=== PATIENT | female | born 1945 | race Caucasian/White ===

== ENCOUNTER → 2020-03-01 11:22 | Outpatient (CLI) | payer MEDICARE, OTHER, SELFPAY ==
--- NOTE | ~2020-03-01 | DEXA_ITS ---
Bone Density Report Name: Chio Andersen Age: 74 Sex: Female Ethnicity: White Date of : 1945 Indication: postmenopausal; screening for osteoporosis; hysterectomy; Referring Provider: MILO, JOSE King Study: Bone densitometry was performed. Exam Date: March 01, 2020 Accession number: [id number] Bone Density: Region BMD T-score Z-score Classification AP Spine (L1-L4) 0.945 -0.9 1.6 Normal Femoral Neck (Left) 0.661 -1.7 0.5 Osteopenia Total Hip (Left) 0.785 -1.3 0.6 Osteopenia Femoral Neck (Right) 0.653 -1.8 0.4 Osteopenia Total Hip (Right) 0.746 -1.6 0.3 Osteopenia Total Hip Mean 0.766 -1.5 0.5 Osteopenia World Health Organization criteria for BMD impression classify patients as: Normal (T-score at or above -1.0), Osteopenia (T-score between -1.0 and -2.5), or Osteoporosis (T-score at or below -2.5). 10-year Fracture Risk(1): Major Osteoporotic Fracture 13% Hip Fracture 3.0% Reported Risk Factors: [place] (), Neck BMD=0.653, BMI=29.1 (1) FRAX(R) Version 3.08. Fracture probability calculated for an untreated patient. Fracture probability may be lower if the patient has received treatment. Clinical Information Provided by Patient: Has used the following medications: Vitamin D, Calcium, MTV Has the following medical conditions: Hysterectomy Patient maximum height was 65 Menopause Age: 47 Drinks caffeinated beverages Onset of menses at age 10 Number of children 1 Impression: The patient has low bone mass, based on the Right Femoral Neck T-score. The patient has an estimated ten-year risk of hip fracture of 3% and an estimated ten-year risk of major fracture of 13%, based on the WHO FRAX algorithm. Discussion: BONE DENSITY IS LOW AT ONE OR MORE SKELETAL SITES. THE PATIENT'S BMD AND CLINICAL RISK FACTORS CONTRIBUTE TO THIS PATIENT'S INCREASED RISK OF FRACTURE. This patient's lowest T-score is low at one or more skeletal sites. It meets the World Health Organization's (WHO) criteria for ?low bone mass? (T-score between -1.0 and -2.5). The patient's 10-year risk of hip fracture as calculated by FRAX exceeds the threshold where pharmacological therapy is recommended by the National Osteoporosis Foundation (NOF). However, all treatment decisions require clinical judgment and consideration of individual patient factors, including patient preferences, comorbidities, previous drug use, risk factors not captured in the FRAX model (e.g., frailty, falls, vitamin D deficiency, increased bone turnover, interval significant decline in bone density) and possible under or overestimation of fracture risk by FRAX. The patient should follow a healthful lifestyle (good nutrition with adequate calcium and vitamin D, and appropriate weight-bearing exercise). Follow-Up: Consider a rep
== END ==
PROVIDERS: PCP Internal Medicine; Visit Provider Internal Medicine
DX: Z78.0 Asymptomatic menopausal state (principal); M85.852 Other specified disorders of bone density and structure, left thigh; M85.851 Other specified disorders of bone density and structure, right thigh
CPT/HCPCS: 77080

== ENCOUNTER → 2021-11-24 10:59 | Outpatient (CLI) | payer MEDICARE, OTHER, SELFPAY ==
--- NOTE | ~2021-11-24 | US_ITS ---
EXAMINATION: US soft tissue head and neck DATE: 11/24/2021 11:17 INDICATION: Lateral right neck mass TECHNIQUE: Multiple grayscale and Doppler ultrasound images of the region of concern at the lateral r ight neck were obtained. COMPARISON: None FINDINGS/IMPRESSION: The palpable abnormality of concern appears to correspond to the right sternoclavicular joint. No mague dent joint effusion. No other abnormal masses or fluid collections identified. Reviewed, dictated and finalized at location A.
== END ==
PROVIDERS: PCP Internal Medicine; Visit Provider Registered Nurse
DX: R22.1 Localized swelling, mass and lump, neck (principal)
CPT/HCPCS: 76536

== ENCOUNTER → 2023-05-08 11:06 | Outpatient (CLI) | payer MEDICARE, OTHER, SELFPAY ==
--- NOTE | ~2023-05-08 | DEXA_ITS ---
Bone Density Report Name: KANDI KRUSE Age: 78 Sex: Female Ethnicity: White Date of : 1945 Indication: osteopenia; height loss; cancer; hysterectomy; postmenopausal Referring Provider: MILO, JOSE King Study: Bone densitometry was performed. Exam Date: May 08, 2023 Accession number: [id number] Bone Density: Region BMD T-score Z-score Classification AP Spine (L1-L4) 0.996 -0.5 2.2 Normal Femoral Neck (Left) 0.732 -1.1 1.2 Osteopenia Total Hip (Left) 0.804 -1.1 0.9 Osteopenia Femoral Neck (Right) 0.653 -1.8 0.5 Osteopenia Total Hip (Right) 0.726 -1.8 0.3 Osteopenia Total Hip Mean 0.765 -1.5 0.6 Osteopenia World Health Organization criteria for BMD impression classify patients as: Normal (T-score at or above -1.0), Osteopenia (T-score between -1.0 and -2.5), or Osteoporosis (T-score at or below -2.5). 10-year Fracture Risk(1): Major Osteoporotic Fracture 14% Hip Fracture 3.7% Reported Risk Factors: US (), Neck BMD=0.653, BMI=28.0 (1) FRAX(R) Version 3.08. Fracture probability calculated for an untreated patient. Fracture probability may be lower if the patient has received treatment. Previous Exams: Region Exam Age BMD T-score BMD Change BMD Change Date g/cm2 vs Baseline vs Previous AP Spine(L1-L4) 05/08/2023 78 0.996 -0.5 0.051* 0.051* 03/01/2020 74 0.945 -0.9 Total Hip(Left) 05/08/2023 78 0.804 -1.1 0.018 0.018 03/01/2020 74 0.785 -1.3 Total Hip(Right) 05/08/2023 78 0.726 -1.8 -0.020 -0.020 03/01/2020 74 0.746 -1.6 *Denotes significance at 95% confidence level, LSC for AP Spine = 0.022 g/cm2, LSC for Total Hip = 0.027 g/cm2 Clinical Information Provided by Patient: Has used the following medications: Vitamin D, Calcium, MTV Has the following medical conditions: Cancer, Hysterectomy, SKIN CANCER Patient maximum height was 65 Menopause Age: 47 Drinks caffeinated beverages Onset of menses at age 10 Number of children 1 Impression: The patient has low bone mass, based on the Right Total Hip T-score. The patient has an estimated ten-year risk of hip fracture of 3.7% and an estimated ten-year risk of major fracture of 14%, based on the WHO FRAX algorithm. No significant bone loss was observed. Discussion: BONE DENSITY IS LOW AT ONE OR MORE SKELETAL SITES. THE PATIENT'S BMD AND CLINICAL RISK FACTORS CONTRIBUTE TO THIS P
== END ==
PROVIDERS: PCP Internal Medicine; Visit Provider Internal Medicine
DX: M85.89 Other specified disorders of bone density and structure, multiple sites (principal); Z78.0 Asymptomatic menopausal state
CPT/HCPCS: 77080

== ENCOUNTER → 2023-05-08 11:11 | Outpatient (CLI) | payer MEDICARE, OTHER, SELFPAY ==
--- NOTE | ~2023-05-08 | CT_ITS ---
EXAMINATION: CT sinus wo con DATE: 05/08/2023 11:39 INDICATION: Acute recurrent maxillary sinusitis TECHNIQUE: Computed tomography (CT) of the paranasal sinuses was performed without contrast. Iterativ e reconstruction technique was employed. Exam dose: 275.58 mGy-cm total exam DLP. COMPARISON: None FINDINGS: There is slight rightward bowing of the nasal septum. The nasal turbinates are symmetric an d moderately prominent in size, with intralamellar cell of both middle nasal turbinates. The ostiomeatal units are patent. The paranasal sinuses and mastoid air cells are normally developed and aerated bilaterally. IMPRESSION: Patent ostiomeatal units, paranasal sinuses and mastoid air cells. Reviewed, dictated and finalized at Location A. Reviewed, dictated and finalized at location L. EMIC SERVICES COORDINATOR
== END ==
PROVIDERS: PCP Otolaryngology; Visit Provider Otolaryngology
DX: J01.01 Acute recurrent maxillary sinusitis (principal)
CPT/HCPCS: 70486

== ENCOUNTER 2023-10-21 10:58 | Emergency (ER) | payer MEDICARE, OTHER, SELFPAY ==
[2023-10-21 11:09] VITALS: BP 136/71; PULSE 66; RESP 14; TEMP 36.4; O2SAT 100
--- NOTE | 2023-10-21 11:24 | ED.SKABFB ---
HPI - Skin/Abscess/Foreign Bdy General Chief complaint: Allergic Reaction Stated complaint: Left Wrist Wasp Sting Time Seen by Provider: 10/21/23 10:59 Source: patient Mode of arrival: ambulatory Limitations: no limitations History of Present Illness HPI narrative: 78-year-old female presents to [facility] with complaints of wasp sting to her left wrist which occurred 2 days ago. Patient reports that she has been applying cool compress, taking Benadryl as well as applying triamcinolone ointment that she has at home. Patient denies shortness of breath, wheezing, trouble swallowing or difficulty breathing. Onset (ago): day(s) (2) Location: LUE Associated symptoms: denies other symptoms Treatments prior to arrival: OTC topical medication Related Data Home Medications Medication Instructions Recorded Confirmed aspirin 81 mg tablet,delayed 81 mg PO DAILY 06/12/23 release (Enteric Coated Aspirin) nebivolol 10 mg tablet (Bystolic) 10 mg PO DAILY 06/12/23 atorvastatin 20 mg tablet mg 10/21/23 estradiol 0.0375 mg/24 hr 10/21/23 semiweekly transdermal patch nebivolol 10 mg tablet (Bystolic) mg 10/21/23 triamterene 37.5 cap 10/21/23 mg-hydrochlorothiazide 25 mg capsule Allergies Allergy/AdvReac Type Severity Reaction Status Date / Time diphenhydramine Allergy Intermediate tachicardi Verified 06/12/23 13:03 [From Benadryl] Sulfa (Sulfonamide Allergy Intermediate Rash Verified 06/12/23 13:03 Antibiotics) isosorbide [From Imdur] Allergy Rash Verified 10/21/23 11:12 Review of Systems Constitutional: Constitutional: Denies chills, Denies fatigue, Denies fever(s) and Denies weakness ENT: Denies dizziness, Denies epistaxis and Denies nasal congestion Cardiovascular: Cardiovascular: Denies chest pain Respiratory: Respiratory: Denies cough, Denies dyspnea and Denies wheezing Gastrointestinal: Gastrointestinal: Denies diarrhea, Denies nausea and Denies vomiting Integumentary/Breasts: Skin/Breast: Denies pruritus, Reports erythema, Reports rash and Denies skin ulcer Comments: Wasp sting to left wrist 2 days ago Neurologic: Denies vertigo, Denies dizziness, Denies syncope and Denies headache(s) Allergic/Immunologic: Allergic/Immunologic: Denies lip swelling, Denies throat swelling, Denies tongue swelling and Denies wheezing PMFSH Social History Social History Smoking status: Never smoker Alcohol intake: never Substance use: never Substance use type: does not use Do You Feel Safe in your Home?: Yes Lack of Transportation: No Lack of Food: Never True Current Housing: I Have Housing Concerned About Future Housing: No Difficulty Paying Gas/Electric Bills: No Difficulty Paying for Meds: No Currently Unemployed: No Education: Bachelor's Degree Difficulty w/ Childcare or Family Care: No Comments At time of signature, I agree with nursing past medical, surgical, social and family history. There is no relevant family history pertinent to the presenting complaint. Exam Const: General: healthy appearing, no acute distress and alert Nutritional Appearance: well nourished Orientation/consciousness: patient oriented x3 Limitations: no limitations HENMT: Head: normal to inspection Throat: posterior oropharynx normal and uvula midline Eyes: Conjunctivae: conjunctivae normal Neck: Neck: normal visual inspection Resp: Effort & Inspection: normal respiratory effort and not labored Auscultation: clear to auscultation bilaterally, no crackles, no rales, no rhonchi and no wheezes Cardio: Rate: regular rate Rhythm: regular rhythm Heart sounds: no murmurs Skin: General skin exam: normal color Other: 1 cm area of erythema noted to left wrist representing wasp sting with surrounding swelling noted. There is no streaking erythema, bruising or bleeding noted. Neuro: General: patient oriented x3 Speech: normal
== END 2023-10-21 11:38 | disposition home or self-care (01) ==
PROVIDERS: Emergency Provider Nurse Practitioner Family; PCP Internal Medicine
DX: T63.461A Toxic effect of venom of wasps, accidental (unintentional), initial encounter (principal); Z79.82 Long term (current) use of aspirin
CPT/HCPCS: 99213; G0463

== ENCOUNTER 2024-10-03 10:37 | Emergency (ER) | payer MEDICARE, OTHER, SELFPAY ==
--- OUTSIDE RECORDS SUMMARY | 2024-10-03 10:40 | XMS_ITS | Encounter Summary ---
Author Organization [facility] Facility Care Team Providers Care Cage Fighter Name Role Phone Ten Overton MD Primary Care Provider [phone] Anum Yusuf MD Unavailable [phone] Jagjit Maxwell MD Unavailable [phone] Encounter Details Date Type Department Care Team (Latest Contact Info) Description 02/20/2017 Orders Only [facility]IN[facility] ProviderSachin MD [address] [place] [id number] Social History Tobacco Use Types Packs/Day Years Used Date Smoking Tobacco: Never Comments Unknown Sex and Gender Information Value Date Recorded Sex Assigned at Not on file 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 us Historical Provider Final Res ult * SCAN - LABS (02/20/2017 12:00 AM CDT) Narrative 02/20/2017 12:00 AM CDT Ordered by an unspecified provider. us Historical Provider Final Res ult documented in this encounter Visit Diagnoses Not on filedocumented in this encounter Additional Health Concerns Infection Onset Date Last Indicated Resolved Time C. difficile 02/08/2012 02/07/2012 documented as of this encounter Care Teams Cage Fighter Relationship Specialty Start Date End Date Ten Overton MD [address] [place] [address] PCP - General 08/26/18 Anum Yusuf MD [address] [place] [address] [address] Consulting Physician Cardiology 05/28/19 Jagjit Maxwell MD [address] [place] [address] Consulting Physician Internal Medicine 11/29/20 documented as of this encounter
--- OUTSIDE RECORDS SUMMARY | 2024-10-03 10:40 | XMS_ITS | Encounter Summary ---
Author Organization [facility] Facility Care Team Providers Care Appraisal Manager Name Role Phone Ten Overton MD Primary Care Provider [phone] Anum Yusuf MD Unavailable [phone] Jagjit Maxwell MD Unavailable [phone] Encounter Details Date Type Department Care Team (Latest Contact Info) Description 10/11/2015 Orders Only [facility]INCONV Provider, MD Sachin [address] [place], [place] [id number] Social History Tobacco Use Types Packs/Day Years Used Date Smoking Tobacco: Never Comments Unknown Sex and Gender Information Value Date Recorded Sex Assigned at Not on file 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 Historical Provider [facility] Final Result * CARDIOLOGY REPORT (10/11/2015 12:00 AM CDT) Anatomical Region Laterality Modality Other Narrative 10/11/2015 12:00 AM CDT Ordered by an unspecified provider. us Historical Provider [facility] EILAS Final Result documented in this encounter Visit Diagnoses Not on filedocumented in this encounter Additional Health Concerns Infection Onset Date Last Indicated Resolved Time C. difficile 02/08/2012 02/07/2012 documented as of this encounter Care Teams Appraisal Manager Relationship Specialty Start Date End Date Ten Overton MD [address] [place] [address] PCP - General 08/26/18 Anum Yusuf MD [address] [place] [address] [address] Consulting Physician Cardiology 05/28/19 Jagjit Maxwell MD [address] [place] [address] Consulting Physician Internal Medicine 11/29/20 documented as of this encounter
--- OUTSIDE RECORDS SUMMARY | 2024-10-03 10:40 | XMS_ITS | Clinical Summary ---
Author Organization [facility] Address [address] [place] [address] Care Team Providers Care Commissioned Police Officer Name Role Phone Ten Overton MD Primary Care Provider [phone] Source Comments [facility],non-owned Affiliates and Associated Physician Practices is amultiple site organization consisting of ambulatory clinics and hospital sitesin [place], [place], [place] and [place]. This disclosure is being madepursuant to the Care Everywhere program and may not contain all information available regarding this patient. Last updated 18.[employer] Allergies Active Allergy Reactions Criticality Noted Date Comments Sulfa Drugs Skin Reactions,Rash Medium 06/27/2017 Medications * Be aware that medications may not be up to date on this document. Alwaysverify current medications with the patient. Ubiquinol 100 MG Take 1 tablet by mouth DAILY. 8 Active fexofenadine (NAT) 60 MG tablet Take 180 mg by mouth. 8 Active metroNIDAZOLE (METROGEL) 1 % gel Apply to affected area. 8 Active triamterene-hydr oCHLOROthiazide (DYAZIDE) 37.5-25 MG capsule Take 1 capsule by mouth. 8 Active Krill Oil 1000 MG Take 1 tablet by mouth DAILY. 8 Active amoxicillin (AMOXIL) 500 MG tablet Take 1 tablet by mouth. 8 Active Probiotic Product (ACIDOPHILUS/GOA T MILK) CAPS Take 1 tablet by mouth DAILY. 8 Active acetaminophen CR (TYLENOL ARTHRITIS PAIN) 650 MG tablet Take 1 tablet by mouth. 8 Active isosorbide mononitrate CR 24hr (IMDUR) 30 MG tablet Take 15 mg by mouth. 8 Active nebivolol (BYSTOLIC) 10 MG tablet Take by mouth DAILY. 8 Active Magnesium Sulfate 70 MG Take 1 tablet by mouth DAILY. 8 Active Vitamin D3, cholecalciferol, 2000 UNITS tablet Take by mouth DAILY. 8 Active aspirin (ASPIRIN) 81 MG tablet Take 81 mg by mouth DAILY. 8 Active Sulfacetamide Sodium (SEBIZON) 10 % by Apply externally route. 8 Active atorvastatin (LIPITOR) 20 MG tablet Take 20 mg by mouth DAILY. 8 Active Family History Medical History Relation Name Comments Diabetes - Gestational Father Diabetes - Gestational Sister Relation Name Status Comments Father Sister Social History Tobacco Use Types Packs/Day Years Used Date Smoking Tobacco: Never Smokeless Tobacco: Never Alcohol Use Standard Drinks/Week Comments No 0 (1 standard drink = 0.6 oz pur e alcohol) Comments Unknown Sex and Gender Information Value Date Recorded Sex Assigned at Not on file Legal Sex Female 5:37 PM SWIMMING COACH Gender Identity Not on file Sexual Orientation Not on file Last Filed Vital Signs Vital Sign Reading Time Taken Comments Blood Pressure 127/76 07/18/2017 10:40 AM CDT Pulse 57 07/18/2017 10:40 AM CDT Temperature - - Respiratory Rate - - Oxygen Saturation 96% 07/18/2017 10:40 AM CDT Inhaled Oxygen Concentration - - Weight 79.8 kg (176 lb) 07/18/2017 8:15 AM CDT Height 165.1 cm (5' 5) 07/18/2017 8:15 AM CDT Body Mass Index 29.29 07/18/2017 8:15 AM CDT Plan of Treatment Health Maintenance Due Date Last Done Comments BONE DENSITY TESTING 1945 MEDICARE AWV 12 MONTHS 1945 DTAP/TDAP/TD VACCINES (1 - Tdap) 1962 PNEUMOCOCCAL VACCINE 50+ (1 of 1 - PCV) 1993 ZOSTER VACCINE (1 of 2) 1993 Respiratory Syncytial Virus (RSV) Vaccine Pt: or over 60 yrs (1 - 1-dose 75+ series) 2018 COVID-19 VACCINE ( - 2023-2 5 season) 2023 DEPRESSION SCREENING 04/23/2024 INFLUENZA VACCINE (Season Ended) 2024 HEPATITIS B VACCINE Aged Out No longe r eligible based on patient's age to complete this topic HIB VACCINE Aged Out No longer eligi ble based on patient's age to complete this topic HPV VACCINE Aged Out No longer eligi ble based on patient's age to complete this topic MENINGOCOCCAL (Group B) VACC INE SHARED DECISION-MAKING Aged Out No longer eligibl e based on patient's age to complete this topic MENINGOCOCCAL GROUPS A/C/Y/W VACCINE Aged Out No longer eligible b ased on patient's age to complete this topic Insurance MEDICARE MEDICARE [facility] Care Teams Commissioned Police Officer Relationship Specialty Start Date End Date Ten Overton MD PCP - General 06/12/17
--- OUTSIDE RECORDS SUMMARY | 2024-10-03 10:40 | XMS_ITS | Clinical Summary ---
Author Organization [facility] Office Center Address [address] [place] [address] Care Team Providers Care Remedial Project Manager Name Role Phone Ten Overton MD Primary Care Provider [phone] Anum Yusuf MD Unavailable [phone] Jagjit Maxwell MD Unavailable Allergies Active Allergy Reactions Criticality Noted Date Comments Diphenhydramine Palpitations Low 12/18/2018 Isosorbide Dinitrate Other (See comments) Low 02/20 Sulfa (Sulfonamide Antibiotics) Unknown,Rash Medium Venom-Honey Bee Anaphylaxis High 09/14/2020 Medications acetaminophen 325 mg capsule 1 capsule (325 mg total) every 6 (six) hours Active cholecalciferol (VITAMIN D-3) 1,000 unit capsule 2 capsules (2,000 Units total) daily Active triamterene-hyd roCHLOROthiazid e (MAXZIDE,DYAZID E) 37.5-25 mg per tablet/capsule Take 1 tablet/capsule by mouth daily as needed Active calcium carbonate-vitam in D3 1,250mg (500mg elemental) - 5 mcg (200 units) per tablet daily Active multivitamin tablet daily Active COQ10, LIPOSOMAL UBIQUINOL, ORAL 100 mg daily A ctive aspirin 81 mg enteric coated tablet 1 tablet (81 mg total) daily Active estradioL (CLIMARA) 0.0375 mg/[address] 1 patch on the skin every 2 (two) weeks Active triamcinolone (KENALOG) 0.1 % cream Apply topically 2 (two) times a day 1 Active naproxen (ALEVE) 220 mg tablet Take 1 tablet (220 mg total) by mouth as needed Active hydrocortisone 0.5 % cream Apply topically 2 (two) times a day as needed Active doxycycline (VIBRAMYCIN) 100 mg capsule Take 1 tablet/capsule (100 mg total) by mouth daily 2 Active MAGNESIUM CHLORIDE ORAL Take 4 tablets by mouth daily Active fexofenadine (NAT) 180 mg tablet Take 1 tablet (180 mg total) by mouth daily Active krill oil 500 mg capsule Take 2 capsules by mouth daily Active clobetasoL (TEMOVATE) 0.05 % gelIndications: Contact Dermatitis Apply 1 application topically 2 (two) times a day As needed Active grayson qat-[id number]-[id number]-Zn-c op-man-bor 250-40-125 mg-mg-unit tablet Take 500 mg by mouth 2 (two) times a day Active fluticasone propionate (FLONASE) 50 mcg/actuation nasal spray Administer 1 spray into each nostril daily Active Bacillus coagulans (PROBIOTIC, B. COAGULANS, ORAL) Take 3 tablets by mouth daily Active atorvastatin (LIPITOR) 40 mg tablet TAKE 1 TABLET(40 MG) BY MOUTH EVERY NIGHT 90 tablet 1 4 Active nebivoloL (BYSTOLIC) 10 mg tablet Take 1 tablet (10 mg total) by mouth daily 90 tablet 1 5 03/01/20 25 Active Active Problems Problem Noted Date Diagnosed Date Nonrheumatic aortic (valve) insufficiency 2022 COVID-19 04/01/2021 Palpitations 02/28/2021 Essential hypertension 05/29/2019 Assessment & Plan (07/13/2022 1:26 PM CDT): Patient has longstanding history of hypertension and tolerating medications well blood pressure under good control patient on Bystolic Plan to continue Bystolic and salt restricted diet Lipids abnormal 11/21/2018 Assessment & Plan (07/13/2022 1:27 PM CDT): Abnormal lipids patient on Lipitor 20 mg tolerating well no side effects no muscle aches advised to continue Lipitor and low-cholesterol diet HLD (hyperlipidemia) 06/15/2016 CAD (coronary artery disease) 01/12/2016 SVT (supraventricular tachycardia) 01/12/2016 Assessment & Plan (07/13/2022 1:26 PM CDT): Known case of SVT on beta taylor tolerating medications well no side effects and not having any palpitation plan to continue same medication MVP (mitral valve prolapse) 01/12/2016 Vitamin D deficiency Encounters Date Type Department Care Team Description 09/22/2024 1:00 PM CDT Office Visit [facility] Cardiology [address] [place] [address] Lev Hammond MD Coronary artery disease involving upper sioux coronary artery of upper sioux heart without angina pectoris (Primary Dx); Mixed hyperlipidemia; Essential hypertension; Nonrheumatic aortic (valve) insufficiency 09/22/2024 Results Follow-Up [facility] Cardiology [address] [place] [address] Lev Hammond MD Comprehensive metabolic panel, Lipid panel, eGFR 09/19/2024 1:50 PM CDT Lab [facility] [address] [place] [id number] from Last 3 Months Surgical History Surgery Date Site/Laterality Comments TONSILLECTOMY AND ADENOIDECTOMY HYSTERECTOMY BREAST BIOPSY Right Benign BREAST BIOPSY Right Benign Medical History Medical History Date Comments CAD (coronary artery disease) SVT (supraventricular tachycardia) MVP (mitral valve prolapse) HLD (hyperlipidemia) Vitamin D deficiency Back pain DJD (degenerative joint disease) DJD (degenerative joint disease) Family History Medical History Relation Name Comments Breast cancer Mother's Sister 1 Breast cancer Mother's Sister 2 Breast cancer Mother's Sister 3 Breast cancer Mother's Sister 4 Breast cancer Mother's Sister 5 Relation Name Status Comments Father Mother Mother's Sister 1 Mother's Sister 2 Mother's Sister 3 Mother's Sister 4 Mother's Sister 5 Social History Tobacco Use Types Packs/Day Years Used Date Smoking Tobacco: Never Smokeless Tobacco: Never Alcohol Use Standard Drinks/Week Comments Never 0 (1 standard drink = 0.6 oz pur e alcohol) AUDIT-C Answer Date Recorded Q1: How often do you have a drink containing alc ohol? Never 11/27/2019 Average Number of Drinks Not on file 020 Frequency of Binge Drinking Not on file 09/2019 Comments No Sex and Gender Information Value Date Recorded Sex Assigned at Not on file Legal Sex Female 10:02 PM MAINTENANCE DEPARTMENT MANAGER Gender Identity Female 10/05/2023 10:08 AM CDT Sexual Orientation Straight 10/05/2023 10 :09 AM CDT Obstetrics History Para Term AB IAB SAB Ectopic Multiple Livin g Live Births 1 1 1 Date Outcome GA Total Labor Labor/2nd/3rd Weight Sex Type Anes PTL Abeba A1 A5 Name Clin Term Last Filed Vital Signs Vital Sign Reading Time Taken Comments Blood Pressure 110/60 09/22/2024 12:56 PM CDT Pulse 64 09/22/2024 12:56 PM CDT Temperature 36.2 C (97.1 F) 09/06/2021 2:55 PM CDT Respiratory Rate 18 04/02/2021 10:0 2 AM MAINTENANCE DEPARTMENT MANAGER Oxygen Saturation 96% 09/22/2024 12: 56 PM CDT Inhaled Oxygen Concentration - - Weight 67.9 kg (149 lb 11.2 oz) 025 12:56 PM CDT Height 165.1 cm (5' 5) 09/22/2024 12:5 6 PM CDT Body Mass Index 24.91 09/22/2024 12:56 PM CDT Plan of Treatment Health Maintenance Due Date Last Done Comments Depression Screening 1945 Hepatitis B Screening 1961 Well Visit 65+ 2008 Fall Risk Assessment 04/02/2022 04/02/2021 DTaP/Tdap/Td Vaccine (2 - Td or Tdap) 11/14/2023 11/13/2013 Covid-19 Vaccine (2023-2 5 season) 2023 06/17/2020, 05/27/2020, 06/17/2011 Osteoporosis Screening-Bone Density Scan 05/08/2025 05/08/2023 Zoster Vaccine Completed 04/18/2018, 02/12/2018 Pneumococcal vaccine 65+ Completed 02/20/2019, 11/22 Influenza Vaccine Completed 02/11/2024, , 01/25/2019, Additional history exists Procedures Procedure Name Priority Date/Time Associated Diagnosis Comments EGFR Routine 09/19/2024 1:57 PM CDT LIPID PANEL Routine 09/19/2024 1:57 PM CDT COMPREHENSIVE METABOLIC PANEL Routine 09/19/2024 1:57 PM CDT from Last 3 Months Results * eGFR (09/19/2024 1:57 PM CDT) eGFR 90 >=60 mL/min/1. 73 m2 Comment: Interpretive Data Reference Interval Normal >/= 90 mL/min/1.73m2 Mildly decreased* 60 - 89 mL/min/1.73m2 Mildly to moderately decreased 45 - 59 mL/min/1.73m2 Moderately to severely decreased 30 - 44 mL/min/1.73m2 Severely decreased 15 - 29 mL/min/1.73m2 Kidney Failure < 15 mL/min/1.73m2 *Relative to young adult level Estimated glomerular filtration rate is determined by the 2020 CKD-EPI equation recommended by the National Kidney Foundation (A Unifying Approach to GFR Estimation: Recommendations of the NKF-ASK Task Force on Reassessing the Inclusion of Race in Diagnosing Kidney Disease, JASN 2020). The CKD-EPI equation should not be used for patients with unstable renal function and has not been validated in children and those over 70. Current interpretive data was last reviewed 2021. Testing performed by: [facility], [address] [place] [address]., [address] Blood 09/19/2024 1:57 PM CDT 09/19/2024 2:13 PM CDT us Lev Hammond MD LAB BLOOD ORDERABLES Final Result CARLIE [address] Department [place] [address] * Lipid panel (09/19/2024 1:57 PM CDT) Cholesterol 150 30 - 199 mg/dL Comment: Interpretive Data Ages < or = 19 years Acceptable: <170 mg/dL Borderline high: 170-199 mg/dL High: >or= 200 mg/dL Ages > or = 20 years Desirable: <200 mg/dL Borderline high: 200-239 mg/dL High: >or= 240 mg/dL Literature References: 1. Expert Panel on Integrated Guidelines for Cardiovascular Health and Risk Reduction in Children and Adolescents. Pediatrics 2011;128:S213 2. NCEP Expert Panel. Circulation 2004;110:227 Current Interpretive Data was last revised on 2017. Testing performed by: [address] [address] Triglycerides 75 <=149 mg/dL CARLIE Comment: Interpretive Data Ages < or = 9 years Acceptable: <75 mg/dL Borderline high: 75-99 mg/dL High: >or= 100 mg/dL Ages 10 to 20 years Acceptable: <90 mg/dL Borderline high: 90-129 mg/dL High: >or= 130 mg/dL Ages > or = 20 years Desirable: <150 mg/dL Borderline high: 150-199 mg/dL High: 200-499 mg/dL Very high: >or= 499 mg/dL Literature References: 1. Expert Panel on Integrated Guidelines for Cardiovascular Health and Risk Reduction in Children and Adolescents. Pediatrics 2011;128:S213 2. NCEP Expert Panel. Circulation 2004;110:227 Current Interpretive Data was last revised on 2017. Testing performed by: [address] [address] HDL 63 >=40 mg/dL CARLIE Comment: Interpretive Data Ages < or = 19 years Acceptable: >45 mg/dL Borderline low: 40-45 mg/dL Low: <40 mg/dL Ages > or = 20 years Desirable: >or= 60 mg/dL Low: <40 mg/dL Literature References: 1. Expert Panel on Integrated Guidelines for Cardiovascular Health and Risk Reduction in Children and Adolescents. Pediatrics 2011;128:S213 2. NCEP Expert Panel. Circulation 2004;110:227 Current Interpretive Data was last revised on 2017. Testing performed by: [address] [address] LDL, calculated 72 <=129 mg/dL CARLIE Comment: Interpretive Data Ages < or = 19 years Acceptable: <110 mg/dL Borderline high: 110-129 mg/dL High: >or= 130 mg/dL Ages > or = 20 years Optimal: <100 mg/dL Near optimal: 100-129 mg/dL Borderline high: 130-159 mg/dL High: >160 mg/dL Calculated using the Roby LDL-C estimating equation. This equation was implemented on 2023. Prior to this date LDL-C was estimated using the Friedewald equation. Literature References: 1. Expert Panel on Integrated Guidelines for Cardiovascular Health and Risk Reduction in Children and Adolescents. Pediatrics 2011;128:S213 2. NCEP Expert Panel. Circulation 2004;110:227 3. Roby M et al. AISHWARYA Cardiol. 2020 August 21;5(5):540-548. doi: 10.1001/jamacardio.2020.0013 Current Interpretive Data was last revised on 2023. Testing performed by: [address] [address] Non-HDL Cholesterol 87 mg/dL CARLIE NEVES Comment: Interpretive Data Ages < or = 19 years Acceptable: <120 mg/dL Borderline high: 120-144 mg/dL High: >145 mg/dL Ages > or = 20 years When triglycerides are >200 mg/dL, Non-HDL cholesterol is a secondary target of therapy with treatment goals that are 30 mg/dL greater than the LDL cholesterol target. Literature References: 1. Expert Panel on Integrated Guidelines for Cardiovascular Health and Risk Reduction in Children and Adolescents. Pediatrics 2011;128:S213 2. NCEP Expert Panel. Circulation 2004;110:227 Current Interpretive Data was last revised on 2017. Testing performed by: [address] [address] Chol/HDL ratio 2 CARLIE NEVES Comment:Testing performed by : [address] [address] Blood 09/19/2024 1:57 PM CDT 09/19/2024 2:13 PM CDT us Lev Hammond MD LAB BLOOD ORDERABLES Final Result CARLIE NEVES [address] [facility] [place] [address] * Comprehensive metabolic panel (09/19/2024 1:57 PM CDT) [facility] Signature Sodium 136 135 - 145 mmol/L Comment:Testing performed by : [address], [place]., [address] Potassium, pl 4.8 3.3 - 4.9 mmol/L CARLIE Comment: Hemolyzed; Potassium value may be falsely elevated by as much as 1.0 mmol/L. Suggest redraw and reanalysis. Testing performed by: [address], [place]., [address] Chloride 100 97 - 110 mmol/L CARLIE Comment:Testing performed by : [address], [place]., [address] CO2 30 22 - 32 mmol/L CARLIE Comment:Testing performed by : [address] [address] Anion gap 6 2 - 15 mmol/L CARLIE Comment:Testing performed by : [address] [address] BUN 11 6 - 25 mg/dL CARLIE Comment:Testing performed by : [address] [address] Creatinine 0.60 0.60 - 1.10 mg/dL CARLIE Comment:Testing performed by : [address] [address] Glucose 92 70 - 199 mg/dL CARLIE Comment: Interpretive Data Fasting glucose >/= 126 mg/dl is diagnostic for diabetes. Fasting is defined as no caloric intake for at least 8 hours. Fasting glucose between 100 mg/dl to 125 mg/dl is diagnostic of prediabetes. In a patient with classic symptoms of hyperglycemia or hyperglycemic crisis, a random glucose >/= 200 mg/dl is diagnostic for diabetes. In the absence of unequivocal hyperglycemia, results should be confirmed by repeat testing. The classification and Diagnosis of Diabetes Diabetes Care 202; 46: S19-S40. Current interpretive data was last revised 2022. Testing performed by: [address] [address] Calcium 9.6 8.5 - 10.3 mg/dL CARLIE Comment:Testing performed by : [address] [address] Bilirubin, total 0.8 0.1 - 1.2 mg/dL CARLIE Comment:Testing performed by : [address], [place]., [address] Protein, pl 6.6 6.5 - 8.5 g/dL CARLIE Comment:Testing performed by : [address], [place]., [address] Albumin 4.1 3.5 - 5.0 g/dL CARLIE Comment:Testing performed by : [address], [address] Alk phos 71 40 - 130 Units/L CARLIE Comment:Testing performed by : [address] [address] ALT 18 7 - 45 Units/L CARLIE Comment:Testing performed by : [address] [address] AST 25 10 - 45 Units/L CARLIE Comment:Testing performed by : [address] [address] Blood 09/19/2024 1:57 PM CDT 09/19/2024 2:13 PM CDT us Lev Hammond MD LAB BLOOD ORDERABLES Final Result Performing Organization Address City/State/[facility] Co de Phone Number [facility] [address] Department [place] [address] from Last 3 Months Additional Health Concerns Infection Onset Date Last Indicated C. difficile 02/08/2012 02/07/2012 Insurance MEDICARE [employer] [facility] [facility] MEDICARE Care Teams Remedial Project Manager Relationship Specialty Start Date End Date Ten Overton MD [address] [place] [address] PCP - General 08/26/18 Anum Yusuf MD [address] [place] [address] [address] Consulting Physician Cardiology 05/28/19 Jagjit Maxwell MD [address] [place] [address] [address] Consulting Physician Internal Medicine 11/29/20
--- OUTSIDE RECORDS SUMMARY | 2024-10-03 10:40 | XMS_ITS | Encounter Summary ---
Author Organization [facility] Facility Care Team Providers Care Lathe Set Up Person Name Role Phone Ten Overton MD Primary Care Provider [phone] Anum Yusuf MD Unavailable [phone] Jagjit Maxwell MD Unavailable [phone] Encounter Details Date Type Department Care Team (Latest Contact Info) Description 02/09/2012 Orders Only [facility] CLINCON[facility] ProviderSachin MD [address] [place], [place] [id number] Social History Tobacco Use Types Packs/Day Years Used Date Smoking Tobacco: Never Assessed Comments Unknown Sex and Gender Information Value Date Recorded Sex Assigned at Not on file Legal Sex Female 10:02 PM AMR PHYSICIAN Gender Identity Female 10/05/2023 10:08 AM CDT Sexual Orientation Straight 10/05/2023 10 :09 AM CDT documented as of this encounter Plan of Treatment Not on file documented as of this encounter Procedures Procedure Name Priority Date/Time Associated Diagnosis Comments CARDIOLOGY REPORT 06/14/2016 12: 00 AM [facility] PHYSICIAN documented in this encounter Results * CARDIOLOGY REPORT (06/14/2016 12:00 AM [facility] PHYSICIAN) Anatomical Region Laterality Modality Other Narrative 06/14/2016 12:00 AM [facility] PHYSICIAN Ordered by an unspecified provider. us Historical Provider [facility]ЯН[facility] ELIAS Final Result documented in this encounter Visit Diagnoses Not on filedocumented in this encounter Additional Health Concerns Infection Onset Date Last Indicated Resolved Time C. difficile 02/08/2012 02/07/2012 documented as of this encounter Care Teams Lathe Set Up Person Relationship Specialty Start Date End Date Ten Overton MD [address] [place] [address] PCP - General 08/26/18 Anum Yusuf MD [address] [place] [address] [address] Consulting Physician Cardiology 05/28/19 Jagjit Maxwell MD [address] [place] [address] [address] Consulting Physician Internal Medicine 11/29/20 documented as of this encounter
--- OUTSIDE RECORDS SUMMARY | 2024-10-03 10:40 | XMS_ITS | Encounter Summary ---
Author Organization [facility] Address [address] [facility] [place] [address] Care Team Providers Care Patrol Police Lieutenant Name Role Phone Ten Overton MD Primary Care Provider [phone] Encounter Details Date Type Department Care Team (Late st Contact Info) Description 03/23/2020 Lab Requisition [facility] DermPath Lab [address] [place] [address] Colleen Horn MD [address] [facility] [address] [place] [address] Social History Tobacco Use Types Packs/Day Years Used Date Smoking Tobacco: Never Smokeless Tobacco: Never Alcohol Use Standard Drinks/Week Comments No 0 (1 standard drink = 0.6 oz pur e alcohol) Comments Unknown Sex and Gender Information Value Date Recorded Sex Assigned at Not on file Legal Sex Female 5:37 PM POWER SUPPLY ENGINEER Gender Identity Not on file Sexual Orientation Not on file documented as of this encounter Plan of Treatment Not on file documented as of this encounter Procedures Procedure Name Priority Date/Time Associated Diagnosis Comments DERMATOPATHOLOGY Routine 03/22/2020 12:0 0 AM POWER SUPPLY ENGINEER documented in this encounter Results * DERMATOPATHOLOGY (03/22/2020 12:00 AM POWER SUPPLY ENGINEER) Case Report Dermatopathology Report Case: [id number] Authorizing Provider: Colleen Horn MD Collected: 03/22/2020 12:00 AM Ordering Location: [facility] DermPath Lab Received: 03/23/2020 06:12 AM Pathologist: Chiquita Wilkins MD Specimen: Skin, anterior neck 0 4:57 PM POWER SUPPLY ENGINEER DERMATOPATHOLOGY LABORATORY Final Diagnosis Specimen A. 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 0 4:57 PM [facility] DERMATOPATHOLOGY LABORATORY Gross Description Specimen A: Received is one formalin filled container labeled with the patient's name and designated anterior neck. The specimen consists of a shave measuring [id number]. Jar 0. 0 4:57 PM [facility] DERMATOPATHOLOGY LABORATORY Microscopic Description Specimen A. SKIN, anterior neck: The epidermis is focally necrotic and covered with a scale-crust. There is fibrin at the base. There is underlying solar elastosis and vascular ectasia. Additional deeper sections were obtained and reviewed. 0 4:57 PM [facility] DERMATOPATHOLOGY LABORATORY Disclaimer An external and internal positive and negative controls are appropriate for the histochemical, immunohistochemical and immunofluorescence stain(s) in this case (if any), except where stated explicitly. The performance characteristics of the stain(s) cited in this report were developed and its performance characteristic determined by the Dermatopathology Laboratory at [facility], directed by Dr. Abraham Goldman. These tests need not be, and therefore are not, approved by the [place] Food and Drug Administration. The tests are used for clinical purposes. Billing Codes Specimen Charges Stain Charges 68934 1 0 4:57 PM [facility] DERMATOPATHOLOGY LABORATORY Embedded Images 0 4:57 PM [facility] DERMATOPATHOLOGY LABORATORY Pathology/Cytolog y TISSUE SPECIMEN FROM SKIN / Unknown 03/22/2020 03/23/2020 6:12 AM [facility] us Colleen Horn MD LAB - PATHOLOGY/CYTOLOGY ORD ERABLES Final Result DERMATOPATHOLOGY LABORATORY [facility] - Department of Dermatology [address] [phone] documented in this encounter Visit Diagnoses Not on filedocumented in this encounter Care Teams Patrol Police Lieutenant Relationship Specialty Start Date End Date Ten Overton MD PCP - General 06/12/17 documented as of this encounter
--- OUTSIDE RECORDS SUMMARY | 2024-10-03 10:40 | XMS_ITS | Encounter Summary ---
Author Organization [facility] Address [address] [place] [address] Care Team Providers Care Stoneworking Sander Name Role Phone Ten Overton MD Primary Care Provider [phone] Anum Yusuf MD Unavailable [phone] Jagjit Maxwell MD Unavailable [phone] Encounter Details Date Type Department Care Team (Late st Contact Info) Description 09/22/2024 Results Follow-Up 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 difficile 02/08/2012 02/07/2012 documented as of this encounter Care Teams Stoneworking Sander Relationship Specialty Start Date End Date Ten Overton MD [address] [place] [address] PCP - General 08/26/18 Anum Yusuf MD [address] [facility] [address] [address] [place] [address] [address] Consulting Physician Cardiology 05/28/19 Jagjit Maxwell MD [address] [place] [address] [address] Consulting Physician Internal Medicine 11/29/20 documented as of this encounter
--- OUTSIDE RECORDS SUMMARY | 2024-10-03 10:40 | XMS_ITS | Encounter Summary ---
Author Organization [facility] Facility Care Team Providers Care Medical Photographer Name Role Phone Ten Overton MD Primary Care Provider [phone] Anum Yusuf MD Unavailable [phone] Jagjit Maxwell MD Unavailable Encounter Details Date Type Department Care Team (Latest Contact Info) Description 05/30/2012 Orders Only [facility] CLINCONV ProviderSachin MD [address] [place], [place] [id number] Social History Tobacco Use Types Packs/Day Years Used Date Smoking Tobacco: Never Assessed Comments Unknown Sex and Gender Information Value Date Recorded Sex Assigned at Not on file Legal Sex Female 10:02 PM ICE HANDLER Gender Identity Female 10/05/2023 10:08 AM CDT Sexual Orientation Straight 10/05/2023 10 :09 AM CDT documented as of this encounter Plan of Treatment Not on file documented as of this encounter Procedures Procedure Name Priority Date/Time Associated Diagnosis Comments CARDIOLOGY REPORT 06/14/2016 12: 00 AM ICE HANDLER documented in this encounter Results * CARDIOLOGY REPORT (06/14/2016 12:00 AM ICE HANDLER) Anatomical Region Laterality Modality Other Narrative 06/14/2016 12:00 AM ICE HANDLER Ordered by an unspecified provider. us Historical Provider [facility] ТАТЬЯНА ELIAS Final Result documented in this encounter Visit Diagnoses Not on filedocumented in this encounter Additional Health Concerns Infection Onset Date Last Indicated Resolved Time C. difficile 02/08/2012 02/07/2012 documented as of this encounter Care Teams Medical Photographer Relationship Specialty Start Date End Date Ten Overton MD [address] [place] [address] PCP - General 08/26/18 Anum Yusuf MD [address] [place] [address] [address] Consulting Physician Cardiology 05/28/19 Jagjit Maxwell MD [address] [place] [address] [address] Consulting Physician Internal Medicine 11/29/20 documented as of this encounter
--- OUTSIDE RECORDS SUMMARY | 2024-10-03 10:40 | XMS_ITS | Encounter Summary ---
Author Organization [facility] Address [address] [place] [address] Care Team Providers Care Cage Operator Name Role Phone Ten Overton MD Primary Care Provider [phone] Encounter Details Date Type Department Care Team (Late st Contact Info) Description 02/01/2023 Lab Requisition [facility] - DermPath Lab [address] [facility] [place] [id number] Colleen Horn MD [address] [facility] [address] [place] [address] Social History Tobacco Use Types Packs/Day Years Used Date Smoking Tobacco: Never Smokeless Tobacco: Never Alcohol Use Standard Drinks/Week Comments No 0 (1 standard drink = 0.6 oz pur e alcohol) Comments Unknown Sex and Gender Information Value Date Recorded Sex Assigned at Not on file 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 Gender Identity Not on file Sexual Orientation Not on file documented as of this encounter Plan of Treatment Not on file documented as of this encounter Procedures Procedure Name Priority Date/Time Associated Diagnosis Comments DERMATOPATHOLOGY Routine 02/01/2023 1:15 PM CDT documented in this encounter Results * DERMATOPATHOLOGY (02/01/2023 1:15 PM CDT) Case Report Dermatopathology Report Case: [id number] Authorizing Provider: Colleen Horn MD Collected: 02/01/2023 01:15 PM Ordering Location: [facility] DermPath Lab Received: 02/02/2023 06:33 AM Pathologist: Krystin Lanier MD Specimen: Skin, nose tip 1:00 PM CDT DERMATOPATHOLOGY LABORATORY Final Diagnosis Specimen A. SKIN, nose tip: ACTINIC KERATOSIS (L57.0) 1:00 PM CDT DERMATOPATHOLOGY LABORATORY at 1300 CDT Clinical History R/O BCC, Non- healing 1:00 PM CDT DERMATOPATHOLOGY LABORATORY Gross Description Specimen A: Received is one formalin filled container labeled with the patient's name and designated nose tip. The specimen consists of a shave biopsy measuring 4x4x1 mm. Jar 0. 1:00 PM CDT DERMATOPATHOLOGY LABORATORY Microscopic Description Specimen A. SKIN, nose tip: There is focal parakeratosis. The lower half of the epidermis shows disorderly maturation of keratinocytes with nuclear pleomorphism. 1:00 PM CDT DERMATOPATHOLOGY LABORATORY Disclaimer An external and internal positive and negative controls are appropriate for the histochemical, immunohistochemical and immunofluorescence stain(s) in this case (if any), except where stated explicitly. The performance characteristics of the stain(s) cited in this report were developed and its performance characteristic determined by the Dermatopathology Laboratory at [facility], directed by Dr. Abraham Goldman. These tests need not be, and therefore are not, approved by the [place] Food and Drug Administration. The tests are used for clinical purposes. Billing Codes Specimen Charges Stain Charges 57551 1 1:00 PM CDT DERMATOPATHOLOGY LABORATORY Embedded Images 1:00 PM CDT DERMATOPATHOLOGY LABORATORY Pathology/Cytolo gy TISSUE SPECIMEN FROM SKIN / Unknown 02/01/2023 1:15 PM CDT 02/02/2023 6:33 AM CDT us Colleen Horn MD LAB - PATHOLOGY/CYTOLOGY ORD ERABLES Final Result DERMATOPATHOLOGY LABORATORY [facility] - Department of Dermatology [address] [place] [address], [facility] [phone] documented in this encounter Visit Diagnoses Not on filedocumented in this encounter Care Teams Cage Operator Relationship Specialty Start Date End Date Ten Overton MD PCP - General 06/12/17 documented as of this encounter
--- OUTSIDE RECORDS SUMMARY | 2024-10-03 10:40 | XMS_ITS | Encounter Summary ---
Author Organization 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 us Historical Provider [facility] ТАТЬЯНА ELIAS Final Result documented in this encounter Visit Diagnoses Not on filedocumented in this encounter Additional Health Concerns Infection Onset Date Last Indicated Resolved Time C. difficile 02/08/2012 02/07/2012 documented as of this encounter Care Teams Coding Educator Relationship Specialty Start Date End Date Ten Overton MD [address] [place] [address] PCP - General 08/26/18 Anum Yusuf MD [address] [place] [address] [address] Consulting Physician Cardiology 05/28/19 Jagjit Maxwell MD [address] [place] [address] [address] Consulting Physician Internal Medicine 11/29/20 documented as of this encounter
--- OUTSIDE RECORDS SUMMARY | 2024-10-03 10:40 | XMS_ITS | Referral Summary ---
Author Organization [facility] Address [address] [place] [phone] Care Team Providers Care Black Top Spreader Machine Operator Name Role Phone Ten Overton MD Primary Care Provider [phone] Anum Yusuf MD Unavailable [phone] Jagjit Maxwell MD Unavailable [phone] Encounters Date Type Department Care Team Description 09/22/2024 Results Follow-Up [facility] Cardiology [address] [place] [address] [address] Lev Hammond MD Comprehensive metabolic panel, Lipid panel, eGFR 09/22/2024 1:00 PM CDT Office Visit [facility] Cardiology [address] [place] [address] [address] [place] [address] Lev Hammond MD 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 (Primary Dx); Mixed hyperlipidemia; Essential hypertension; Nonrheumatic aortic (valve) insufficiency 09/19/2024 1:50 PM CDT Lab [facility] [address] [place] [address] from Last 3 Months Allergies Active Allergy Reactions Criticality Noted Date [...] times a day As needed Active grayson [id number] op-man-bor 250-40-125 mg-mg-unit tablet Take 500 mg [...] (mitral valve prolapse) 01/12/2016 Vitamin D deficiency Social History Tobacco Use Types Packs/Day Years [...] on file 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 Gender Identity Female 10/05/2023 10:08 AM CDT Sexual Orientation Straight 10/05/2023 10 :09 AM CDT Last Filed Vital Signs Vital Sign Reading Time Taken Comments Blood Pressure 110/60 09/22/2024 12:56 PM CDT Pulse 64 09/22/2024 12:56 PM CDT Temperature 36.2 C (97.1 F) 09/06/2021 2:55 PM CDT Respiratory Rate 18 04/02/2021 10:0 2 AM COAL SCREENER Oxygen Saturation 96% 09/22/2024 12: 56 PM CDT Inhaled Oxygen Concentration - - Weight 67.9 kg (149 lb 11.2 oz) 025 12:56 PM CDT Height 165.1 cm (5' 5) 09/22/2024 12:5 6 PM CDT Body Mass Index 24.91 09/22/2024 12:56 PM CDT Plan of Treatment Not on file Procedures Procedure Name Priority Date/Time Associated Diagnosis [...] was last reviewed 2021. Testing performed by: [facility], [address] [place] [address]., [address] Blood 09/19/2024 1:57 PM CDT 09/19/2024 2:13 PM CDT us Lev Hammond MD LAB BLOOD ORDERABLES Final Result [facility] [address] [facility] [place] [address] * Lipid panel (09/19/2024 1:57 PM CDT) [...] last revised on 2017. Testing performed by: [address] [address] Triglycerides 75 <=149 mg/dL CARLIE Comment: Interpretive [...] last revised on 2017. Testing performed by: [address] [address] HDL 63 >=40 mg/dL CARLIE Comment: Interpretive [...] last revised on 2017. Testing performed by: [address] [address] LDL, calculated 72 <=129 mg/dL CARLIE NEVES Comment: Interpretive Data Ages [...] NCEP Expert Panel. Circulation 2004;110:227 3. Roby Justin et al. AISHWARYA Cardiol. 2020 August 21;5(5):540-548. doi: 10.1001/jamacardio.2020.0013 Current Interpretive Data was last revised on 2023. Testing performed by: [address] [address] Non-HDL Cholesterol 87 mg/dL CARLIE NEVES Comment: [...] last revised on 2017. Testing performed by: [address] [address] Chol/HDL ratio 2 CARLIE Comment:Testing performed by : [address] [address] Blood 09/19/2024 1:57 PM CDT 09/19/2024 2:13 PM CDT us Lev Hammond MD LAB BLOOD ORDERABLES Final Result [facility] [address] [facility] [place] [address] * Comprehensive metabolic panel (09/19/2024 1:57 PM CDT) Sodium 136 135 - 145 mmol/L Comment:Testing performed by : [address] [address] Potassium, pl 4.8 3.3 - 4.9 mmol/L CARLIE Comment: Hemolyzed; Potassium value may be falsely elevated by as much as 1.0 mmol/L. Suggest redraw and reanalysis. Testing performed by: [address] [address] Chloride 100 97 - 110 mmol/L CARLIE Comment:Testing performed by : [address] [address] CO2 30 22 - 32 mmol/L CARLIE Comment:Testing performed by : [address] [address] Anion gap 6 2 - 15 mmol/L CARLIE Comment:Testing performed by : [address] [address] BUN 11 6 - 25 mg/dL CARLIE Comment:Testing performed by : [address] [address] Creatinine 0.60 0.60 - 1.10 mg/dL CARLIE Comment:Testing performed by : [address] [address] Glucose 92 70 - 199 mg/dL CARLIE [...] classification and Diagnosis of Diabetes Diabetes Care 2021; 46: S19-S40. Current interpretive data was last revised 2022. Testing performed by: [address] [address] Calcium 9.6 8.5 - 10.3 mg/dL CARLIE Comment:Testing performed by : [address] [address] Bilirubin, total 0.8 0.1 - 1.2 mg/dL CARLIE Comment:Testing performed by : [address] [address] Protein, pl 6.6 6.5 - 8.5 g/dL CARLIE Comment:Testing performed by : [address] [address] Albumin 4.1 3.5 - 5.0 g/dL CARLIE Comment:Testing performed by : [address] [address] Alk phos 71 40 - 130 Units/L CARLIE Comment:Testing performed by : [address] [address] ALT 18 7 - 45 Units/L CARLIE Comment:Testing performed by : [address] [address] AST 25 10 - 45 Units/L CARLIE Comment:Testing performed by : [address] [address] Blood 09/19/2024 1:57 PM CDT 09/19/2024 2:13 PM CDT us Lev Hammond MD LAB BLOOD ORDERABLES Final Result [facility]IE [address] [facility] [place] [address] from Last 3 Months Additional Health Concerns Infection Onset Date Last Indicated C. difficile 02/08/2012 02/07/2012 Insurance MEDICARE [employer] [facility] MEDICARE Care Teams Black Top Spreader Machine Operator Relationship Specialty Start Date End Date Ten Overton MD [address] [place] [address] PCP - General 08/26/18 Anum Yusuf MD [address] [facility] [address] [place] [address] [address] Consulting Physician Cardiology 05/28/19 Jagjit Maxwell MD [address] [facility] [address] [place] [address] [address] Consulting Physician Internal Medicine 11/29/20
--- OUTSIDE RECORDS SUMMARY | 2024-10-03 10:43 | XMS_ITS | Data Portability ---
Author Organization [facility] Address [address] [place] [address] Assessment No assessment recorded. Plan of Treatment Reminders Order Date Submit Date Provider Last Modified By Organization Details Last Modified Time Details Appointments None recorded. Lab None recorded. Referral None recorded. Procedures None recorded. Surgeries None recorded. Imaging MAMMO, screening, digital, bilateral 2022 023 [email or web address] 3 Not available 3 15:51:45 bone density 2022 023 [email or web address] 3 Not available 15:51:45 MAMMO, screening, digital, bilateral 2021 022 [email or web address] Not available 15:25:12 Medication Orders estradiol 0.01% (0.1 mg/gram) vaginal cream 2024 025 [facility] [address], [address] [place] [address], [address], 5 14:21:10 Vivelle-Do t 0.0375 mg/24 hr transderma l patch 2024 025 [facility] [address], [address] [place] [address], [address], 5 14:21:10 estradiol 0.0375 mg/24 hr semiweekly transderma l patch 2022 023 [facility] [address], [address] [place] [address], [address], 15:19:27 estradiol 0.0375 mg/24 hr semiweekly transderma l patch 2021 022 [facility], [address], [address], 14:57:14 Patient TargetsNo targets recorded. Patient Instructions Encounter Date Encounter Id Patient Instructions Last Modified By Organization Details Last Modified Time 12/14/2021 [id number] abuse/domestic violence education [place] [address] Not available 12/14/2021 14:57:02 eating healthy foods: care instructions [place] [address] Not available 12/14/2021 14:57:03 weight managemen t education [place] [address] Not available 12/14/2021 14:57:03 01/19/2023 [id number] Patient Health Questionnaire-9* [email or web address] Not available 01/22/2023 12:21:57 abuse/domestic violence education [facility] Not available 01/19/2023 15:19:21 eating healthy foods: care instructions [place] [address] Not available 01/19/2023 15:19:21 weight managemen t education [place] [address] Not available 01/19/2023 15:19:21 Reason for Referral None Reported. Results Created Date Observation Date Name Description Value Unit Range Abnormal Flag Note LastModifiedBy Organization Detail LastModifiedTime 12/03/19 22 12/02/2021 MAMMO , scree [place], digit al, bilat eral No observ ation record ed. [address] [place], [address], 01/19/2023 15:06:00 10/19/19 23 10/18/2022 MAMMO , scree [place], digit al, bilat eral No observ ation record ed. [email or web address] Not Available 2022 10:27:42 10/19/19 23 10/18/2022 [place], taqueria tdamiána teral No observ ation record ed. [address] [place], [address], 10/29/2022 18:30:22 10/21/19 23 10/18/2022 , taqueria eastman, limit ed No observ ation record ed. [email or web address] Not Available 2022 14:58:06 12/15/19 23 12/14/2022 MAMMO , scree [place], digit al, bilat eral No observ ation record ed. [email or web address] [facility] [address] [place], [address], 12/16/2022 15:24:56 02/02/2001/29/2023 stres s echoc ardio gram No observ ation record ed. [facility] [address] [place], [address], 02/05/2023 12:00:10 02/16/2002/15/2023 stres s echoc ardio gram No observ ation record ed. [facility] [address] [place], [place], [address], 02/27/2023 16:02:34 12/20/19 24 12/20/2023 MAMMO , scree [place], digit al, bilat eral No observ ation record ed. [email or web address] [facility] [address] [place], [address], 12/27/2023 11:18:20 Result Notes None recorded. Problems Name Problem SNOMED Code Status Onset Date Resolution Date Notes Provider Name and Address Organization Details Recorded Time Breast neoplasm screenin g NOS Completed 201608/08/2016 Screenin g for breast cancer, unspecif ied; Location : None Severity : Moderate Progress : Stable Added By: Natasha Al Add to Current Problems : YES ProblemS tatus: Resolve Screenin g mammogra m - other; Location : None Severity : Moderate Progress : Stable Added By: Marcia Alfred Add to Current Problems : NO ProblemS tatus: Resolve; Start Date : 12/03/19 14 Not Available [facility] 1 18:23:26 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 515316745 Active 2020 Unspecif ied menopaus al and perimeno pausal disorder ; Progress : Stable Added By: Jagjit Maxwell Add to Current Problems : YES ProblemS tatus: Current Not Available [facility] 2 16:15:06 Breast neoplasm screenin g status 666668352 Completed 201608/08/2016 Encounte r for other screenin g for malignan t neoplasm of breast; Progress : Stable Added By: Natasha Al Add to Current Problems : NO ProblemS tatus: Resolve Not Available [facility] 2 16:15:06 Menopaus al symptom 86969385 Completed 201404/17/2015 Menopaus al Symp; Location : None Progress : Stable Added By: Kusum Kidd Add to Current Problems : YES ProblemS tatus: Resolve Not Available [facility] 2 16:15:06 Screenin g mammogra phy Completed 201301/31/2014 Screenin g mammogra m - other; Location : None Progress : Stable Added By: Marcia Alfred Add to Current Problems : NO ProblemS tatus: Resolve Not Available [facility] 2 16:15:06 Total hysterec zohreh Active 2021 Suzie Icenogle null, [facility] 2 14:31:15 Sampling of vagina for Papanico laou smear Active 2020 Encounte r for gynecolo gical examinat ion (general ) (routine ) without abnormal findings ; Progress : Stable Added By: Stacey Franklin Add to Current Problems : YES ProblemS tatus: Current Not Available [facility] 2 16:15:06 Notes:Screening for breast c ancer, unspecified (V76.10) ; OnsetDate: 06/09/2016; ResolvedDate: 08/08/2016; Progress: Stable Added By: Natasha Al Add to Current Problems: NO ProblemStatus: Resolve Problem Notes None recorded. Procedures Surgical History Date Name Laterality Status Provider Name and Address Organization Details Recorded Time 12/20/19 24 Most Recent Mammogram completed [facility] 07/28/2024 14:00:56 01/20/20 23 Most Recent Bone Density completed [facility] 07/28/2024 14:01:24 10/30/19 12 Date of Last Pap Smear completed [facility] [employer] [facility] [employer] [employer] 12/14/2021 10:30:11 hysterectomy completed Krystin Ariistoky [employer] 12/14/2021 10:27:32 Unlisted procedure breast completed [facility] [facility] [employer] [employer] 12/14/2021 10:27:52 Imaging Results None recorded. Procedure Notes None recorded. Medical Equipment None Reported. Allergies Allergen ID Allergen Name Allergen Category Reaction Reaction Severity Criticality Documentation Date Start Date Code Code System Note Provider Name and Address Organization Details Recorded Time 099125 Substance with sulfonami de structure and antibacte rial mechanism of action (substanc e) medicatio n Not available Not available Not available 02/11/20212013 09125 8003 SNOMED Sever ity: Moder ate; Not Available [facility] 01:17:35 450136 Benadryl medicatio n Not available Not available Not available 02/11/20212020 45781 7 RxNorm Sever ity: Sever e; Not Available [facility] 01:17:35 216692 honey bee venom medicatio n Not available Not available Not available 02/11/20212020 53594 7 RxNorm Sever ity: Moder ate; Not Available [facility] 01:17:36 Medications Name Sig Start Date Stop Date Status Note LastModified by Organization Details LastModified Time atorvasta tin 40 mg tablet active Not Available Not Available Not Available hydrocort isone 0.5 % topical cream apply a thin layer to the affected area(s) by topical route 2 times per day active hydrocor tisone 0.5 % Topical Cream RxNorm: 601251 Allow Substitu tion: False Refill Denied: No Refill DateOccu rred: 06/30/20 21 Edited by: Jagjit Ibarra) on 10/21/19 Stopped by: Jagjit Ibarra) on Not Available Not Available Not Available atorvasta tin 20 mg tablet TAKE ONE TABLET BY MOUTH DAILY 01/19 completed Not Available Not Available Not Available azithromy bro 250 mg tablet TAKE 2 TABLETS BY MOUTH FOR 1 DAY THEN TAKE 1 TABLET BY MOUTH DAILY FOR 4 DAYS 01/19 completed Not Available Not Available Not Available clobetaso l 0.05 % topical cream apply a thin layer to the affected area(s) by topical route 2 times per day active clobetas oL 0.05 % Topical Cream RxNorm: 620820 Allow Substitu tion: False Refill Denied: No Refill DateOccu rred: 10/21/19 Edited by: Jagjit Ibarra) on 10/21/19 Stopped by: Jagjit Ibarra) on Not Available Not Available Not Available triamtere ne 37.5 mg-hydroc hlorothia zide 25 mg capsule TAKE 1 CAPSULE BY MOUTH DAILY active Not Available Not Available No t Available triamcino lone acetonide 0.1 % topical cream APPLY CREAM TO NECK AND ARM TWICE DAILY NEEDED FOR ITCHING active Not Available Not Available No t Available ciclopiro x 8 % topical solution APPLY SOLUTION TOPICALL Y TO TOENAILS EVERY DAY AT BEDTIME active Not Available Not Available No t Available benzonata te 100 mg capsule 01/19 completed Not Available Not Available Not Available tacrolimu s 0.1 % topical ointment APPLY TOPICALL Y TO EYELIDS TWICE DAILY active Not Available Not Available No t Available codeine 10 mg-guaife nesin 100 mg/5 mL oral liquid TAKE 5 ML BY MOUTH EVERY 6 HOURS NEEDED FOR COUGH 01/19 completed Not Available Not Available Not Available estradiol 0.01% (0.1 mg/gram) vaginal cream INSERT 1 GM VAGINALL Y TWICE WEEKLY active Not Available Not Available No t Available estradiol 0.0375 mg/24 hr semiweekl y transderm al patch APPLY 1 PATCH TOPICALL Y TWICE A WEEK active Not Available Not Available No t Available doxycycli ne hyclate 100 mg tablet TAKE 1 TABLET BY MOUTH ONCE DAILY active Not Available Not Available No t Available naproxen 500 mg tablet active Not Available Not Available Not Available cyclobenz aprine 5 mg tablet active Not Available Not Available No t Available metronida zole 1 % topical gel APPLY A THIN LAYER TO FACE TWICE DAILY 01/19 completed Not Available Not Available Not Available magnesium active Not Available Not Anahi ilable Not Available atorvasta tin 01/19 completed atorvast atin RxNorm: 78222 Allow Substitu tion: False Refill Denied: No Refill DateOccu rred: 10/21/19 21 Edited by: Jagjit Ibarra) on 10/21/19 21 Stopped by: Jagjit Ibarra) on Not Available Not Available Not Available metronida zole 12/14 completed metroNID AZOLE RxNorm: 278080 Allow Substitu tion: False Refill Denied: No Refill DateOccu rred: 10/21/19 21 Edited by: Jagjit Ibarra) on 10/21/19 21 Stopped by: Jagjit Ibarra) on Not Available Not Available Not Available calcium active Not Available Not Avail able Not Available isosorbid e dinitrate 01/01 completed Isosorbi de Dinitrat e 30mg Tablet RxNorm: 204463 Allow Substitu tion: True Refill Denied: No Refill DateOccu rred: 12/03/19 14 Edited by: Natasha Ogden) on 01/02/20 18 Stopped by: Natasha Ogden) on 01/02/20 18 Not Available Not Available Not Available Vitamin D active Not Available Not Anahi ilable Not Available triamtere ne 01/19 completed triamter katerine RxNorm: 31330 Allow Substitu tion: False Refill Denied: No Refill DateOccu rred: 10/21/19 21 Edited by: Jagjit Ibarra) on 10/21/19 21 Stopped by: Jagjit Ibarra) on Not Available Not Available Not Available Flexeril 01/19 completed Flexeril RxNorm: 836914 Allow Substitu tion: False Refill Denied: No Refill DateOccu rred: 10/21/19 21 Edited by: Jagjit Ibarra) on 10/21/19 21 Stopped by: Jagjit Ibarra) on Not Available Not Available Not Available doxycycli ne calcium 01/19 completed doxycycl ine calcium RxNorm: 925938 Allow Substitu tion: False Refill Denied: No Refill DateOccu rred: 10/21/19 21 Edited by: Jagjit Ibarra) on 10/21/19 21 Stopped by: Jagjit Ibarra) on Not Available Not Available Not Available Baby Aspirin 2013 active Baby aspirin Allow Substitu tion: True Refill Denied: No Refill DateOccu rred: 12/03/19 14 Edited by: Stacey Corbett ) on 10/21/19 21 Stopped by: Stacey Corbett ) on Not Available Not Available Not Available triamcino lone (bulk) cream 0.1% active triamcin olone (bulk) RxNorm: 45787 Allow Substitu tion: False Refill Denied: No Refill DateOccu rred: 10/21/19 21 Edited by: Jagjit Ibarra) on 10/21/19 21 Stopped by: Jagjit Ibarra) on Not Available Not Available Not Available Bystolic 10 mg tablet TAKE 1 TABLET BY MOUTH ONCE DAILY active Not Available Not Available No t Available Vagifem 10 mcg vaginal tablet Insert 1 vaginal tablet(s ) in vagina 2 times weekly 01/26 completed Vagifem 10mcg Vaginal Tablets RxNorm: 354560 Allow Substitu tion: True Refill Denied: No Not Available Not Available Not Available Probiotic active Probioti c Allow Substitu tion: False Refill Denied: No Refill DateOccu rred: 10/21/19 21 Edited by: Jagjit Ibarra) on 10/21/19 21 Stopped by: Jagjit Ibarra) on Not Available Not Available Not Available Tigist Allergy active Tigist Allergy RxNorm: 059704 Allow Substitu tion: False Refill Denied: No Refill DateOccu rred: 10/21/19 21 Edited by: Jagjit Ibarra) on 10/21/19 21 Stopped by: Jagjit Ibarra) on Not Available Not Available Not Available metronida zole 1 % topical gel with pump APPLY GEL TO AFFECTED AREA OF FACE TWICE DAILY 01/19 completed Not Available Not Available Not Available PreviDent 5000 Booster Plus 1.1 % dental paste USE TWICE DAILY DIRECTED . DO NOT SWALLOW 01/19 completed Not Available Not Available Not Available Osphena 60 mg tablet Take 1 tablet(s ) by mouth daily with food. 03/12 completed Osphena 60mg Tablet RxNorm: 7882583 Allow Substitu tion: True Refill Denied: No Refill Note: Auto Aged Refill DateOccu rred: 02/17/20 15 For Problem: Menopaus al Symp Not Available Not Available Not Available Tylenol 325 mg capsule active TylenoL 325 mg oral capsule RxNorm: 0161530 Allow Substitu tion: False Refill Denied: No Refill DateOccu rred: 10/21/19 21 Edited by: Jagjit Ibarra) on 10/21/19 21 Stopped by: Jagjit Ibarra) on Not Available Not Available Not Available Vitals Date Recorded Body height Body mass index (BMI) Body weight Systolic blood pressure Diastolic blood pressure Provider Name and Address Organization Details Last Updated DateTime 07/28/2024 165.1 cm 25 kg/m2 98071.86 g 118 mm[Hg] 62 mm[Hg] Vanna Hernandez [facility] 5 14:04:36 Date Recorded Body height Body mass index (BMI) Body weight Systolic blood pressure Diastolic blood pressure Provider Name and Address Organization Details Last Updated DateTime 12/14/2021 165.1 cm 27.2 kg/m2 85073.99 g 122 mm[Hg] 76 mm[Hg] Suzie Rushing [place] [facility] 2 14:29:07 Date Recorded Body height Provider Name an d Address Organization Details Last Updated DateTime 01/19/2023 165.1 cm Faith Ho [employer] [facility] 01/19/2023 14:37:09 Date Recorded Body mass index (BMI) Body weight Body temperature Systolic blood pressure Diastolic blood pressure Provider Name and Address Organization Details Last Updated DateTime 01/19/2023 27 kg/m2 47746.9 6 g 97.2 [degF] 116 mm[Hg] 64 mm[Hg] Carlie Manuel [employer] IV 14:42:17 Social History Question Answer Notes LastModified by [employer] Details LastModified Time Tobacco Smoking Status Never Smoker Suzie esteves, [employer] [facility] 12/14/2021 14:31:31 Are You Blind Or Do You Have Difficulty Seeing? No Information not available 01/19/2023 Are You Deaf Or Do You Have Serious Difficulty Hearing? No Information not available 01/19/2023 What Type Of Diet Are You Following? REGULAR Information not available 12/14/2021 What Is Your Relationship Status? Information not available 12/14/2021 Are You Sexually Active? No Information not available 12/14/2021 What Types Of Sporting Activities Do You Participate In? Walking 3x Week Information not available 12/14/2021 Sex: Unknown Functional Status Question Answer Note LastModified by [employer] Details LastModified Time Do you use any illicit or recreational drugs? No Information not available 12/14/2021 Do you or have you ever used any other forms of tobacco or nicotine? No Information not available 12/14/2021 Are you currently employed? 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 Occasional Information not available 12/14/2021 Mental Status None recorded. Family History Relationship Description Onset Age of this Age Resolved Age Notes LastModified by Organization Details LastModified Time Sister Deep venous thrombosis [email or web address] Not available 10:28:06 Sister Type 2 diabetes mellitus [email or web address] Not available 11/22 10:28:23 Father Type 2 diabetes mellitus [email or web address] Not available 11/22 10:28:23 Medical History Condition Response High Blood Pressure Y Arthritis Y High Cholesterol Y Gynecological History Statement/Question Response Date of Last Colonoscopy Most Recent Bone Density 01/19/2023 Date of Last Pap Smear 10/30/2011 Most Recent Mammogram 12/20/2023 Current Control Method Hysterectom y Age at Menarche 10 Obstetrics History GPAL:G 1 P 1 0 0 1 Type Value Full Term 1 Living 1 Total 1 Past Encounters Encounter ID Performer Location Encounter Start Date Encounter Closed Date Diagnosis/Indication Diagnosis SNOMED-CT Code Diagnosis ICD10 Code Diagnosis Note [id number] Jagjit Maxwell MD [facility] [address] [place] [address] 12/14/2021 14:23:21 12/14/2021 14:57:59 Gynecologic examination 45071172 Z01.89 y.o. here for annual exam. - Pap/HPV today. Discussed natural course of HPV infection. Plan to stop testing if this cotest neg. - Routine labs done with PCP - Mammo last year WNL. Pt denies personal/f amily hx breast cancer. Discussed multiple guidelines , USPTF q2 yrs until 73 then optional, versus ACS/ACOG recommenda tion for yearly screen. Pt would like to repeat next year. - DEXA last year stable, pt to repeat yearly given osteoporos is, continue bisphospho cora per PCP - Colonoscop y WNL <10 yrs ago, aware should repeat q10y - Depression screen NEG - BMI counseling , diet and exercise reviewed - RTO 1 yr or as needed Screening for malignant neoplasm of breast 588123700 Z12.39 Menopausal symptom 57193 002 N95.1 will see her q 2 years and will call in estrogen for a year [id number] Jagjit Maxwell MD [facility] [address] [place] [address] 01/19/2023 14:33:53 01/19/2023 17:17:03 Gynecologic examination 24469342 Z01.89 y.o. here for annual exam.- Pap/HPV today. Discussed natural course of HPV infection. Plan to stop testing if this cotest neg.- Routine labs done with PCP- Mammo last year WNL. Pt denies personal/f amily hx breast cancer. Discussed multiple guidelines , USPTF q2 yrs until 73 then optional, versus ACS/ACOG recommenda tion for yearly screen. Pt would like to repeat next year.- DEXA last year stable, pt to repeat yearly given osteoporos is, continue bisphospho cora per PCP- Colonoscop y WNL <10 yrs ago, aware should repeat q10y- Depression screen NEG- BMI counseling , diet and exercise reviewed- RTO 1 yr or as needed Screening for malignant neoplasm of breast 955076669 Z12.31 Screening for osteoporosis 027783717 Z13.820 Depression screening 171 720889 Z13.31 Menopausal symptom 34787 002 N95.1 will see her q 2 years and will call in estrogen for a year [id number] Jagjit Maxwell MD [facility] [address] [place] [address] 07/28/2024 13:41:12 07/28/2024 15:10:46 Menopausal symptom 37261047 N95.1 will see her q 2 years and will call in estrogen for a year Health Concerns Section Related Observation LastModified by Organization Detai ls LastModified Time None Recorded Concern Status LastModified by Organization Details LastModified Time None Recorded Advance Directives Directive None Recorded Payers Insurance Date Sequence Insurance Name Policy Number Policy Shaffer Covered Member ID Shaffer Member ID Guarantor Name 07/28/2024 2 [employer] (MEDICARE SUPPLEMENT) Chio Solano [id number] Chio Solano 07/28/2024 1 [place] Chio Solano [id number] Chio Solano Notes Date Note Type Note Provider Name and Address Organization Details Recorded Time 12/14/2021 text/html Annual Ware[employer] Work[employer] Post-MenopausalRep orted bypatient.Menopaus al Symptoms:no menopausal symptoms; normal vaginal lubrication Vaginal Bleeding:history of menopause having occurred; no history of post menopausal bleeding Urinary Symptoms:no hematuria; no incontinence; no nocturia; no urinary frequency Vulva:no genital lesion; no vulvar atrophy Vagina:normal vaginal discharge; no vaginal atrophy Breast:no breast lump; no nipple discharge; no breast pain Sexual Complaints:no sexual complaints Psychological Symptoms:no depression; no anxiety Jagjit Maxwell MD [address] [place], [address], [facility] 12/14/2021 14:57:44 01/19/2023 text/html Pt is here today for annual. Pt declines STD Screening and blood work. Pt denies any complaints or concerns at this time. Pt stated she would like to go over mammogram results. Jagjit Maxwell MD [facility], [place], [address], [facility] 01/19/2023 15:20:44 07/28/2024 text/html Chio is a 79 y/ o female. Pt is here for a refill on her Estradiol Transdermal Patch. Pt says she would like to stick with the Sandoz brand of the patch. Pt has no concerns. Jagjit Maxwell MD [facility], [place], [address], [facility] 07/28/2024 14:23:03 OBGyn Episode Ob Episode Information Episode Created Date Number of Fetuses Patient Bloodtype Patient rh Status Prepregnancy Weight lbs Domestic Partner Domestic Partner Phone Father Name Internal Specialist Status 01/20/20 23 1 CLOSED Fetus Data First Name Last Name Admitted to NICU Weight (g) Sex Living Outcome Pediatric Complications Fetus ID Race Codes Race Delivery Type F Full Term [id number] Stanton Calculation Initial Stanton Date Initial Exam Date Initial Exam Provider Initial Ultrasound Date Last Menstrual Period Date Ultra Sound Weeks Gestation 0 Eighteen To Twenty Week Stanton Update Ultra Sound Date Fundal Height At Umbil Quickening Date Ultra Sound Latest Weeks Gestation Final Stanton Confirmed By Final Stanton Confirmed Date Final Stanton Date Ultra Sound Latest Days Gestation 0 0 Menstrual History Last Menstrual Date Menses Monthly On Bcp Conception Prior Menses Frequency Hcg Plus Date Menarche Onset Age Delivery Information Delivery Date Delivery Type Labor Anesthesia Weeks Gestation Incision Type Labor Labor Length Hrs Delivered By Post Complications Tubal Sterilization Discharge Date Comments 5 None 39 false Discharge Information Feeding Method Contraceptive Method Maternal HG B and HCT Levels
[2024-10-03 10:47] VITALS: BP 108/49; PULSE 64; RESP 17; TEMP 36.4; O2SAT 97
--- NOTE | 2024-10-03 10:56 | ED.SKABFB ---
HPI - Skin/Abscess/Foreign Bdy General Chief complaint: Skin/Abscess/Foreign Body Stated complaint: Bee Sting on LT Hand Time Seen by Provider: 10/03/24 10:45 Source: patient Mode of arrival: ambulatory Limitations: no limitations History of Present Illness HPI narrative: 79-year-old female presents with complaint of swelling, redness to left hand. Was stung by a bee yesterday. Was wearing gloves at time bee sting. Denies pain. Has been taking Tigist and Benadryl. Complaining of itching. All systems reviewed and negative except as noted above. Related Data Home Medications ?Medication ?Instructions ?Recorded ?Confirmed ?Last Taken ?Type aspirin 81 mg tablet,delayed 81 mg PO DAILY 06/12/23 Unknown History release (Enteric Coated Aspirin) nebivolol 10 mg tablet (Bystolic) 10 mg PO DAILY 06/12/23 Unknown History estradiol 0.0375 mg/24 hr 10/21/23 Unknown History semiweekly transdermal patch triamterene 37.5 cap 10/21/23 Unknown History mg-hydrochlorothiazide 25 mg capsule atorvastatin 40 mg tablet mg PO 07/07/24 Unknown History ciclopirox 8 % topical solution topical 07/07/24 Unknown History doxycycline hyclate 100 mg tablet mg PO 07/07/24 Unknown History fluticasone propionate 50 2 spray intranasal DAILY 07/07/24 Unknown History mcg/actuation nasal spray,suspension (Flonase Allergy Relief) Allergies Allergy/AdvReac Type Severity Reaction Status Date / Time isosorbide (From Imdur) Allergy Mild Rash Verified 10/03/24 10:41 Sulfa (Sulfonamide Allergy Mild Rash Verified 10/03/24 10:41 Antibiotics) diphenhydramine (From AdvReac Intermediate Palpitation Verified 10/03/24 10:41 Benadryl) s Review of Systems Review of Systems: CONSTITUTIONAL: Denies fever, chills, or sweats. EYES: Denies visual changes, redness, or discharge. ENT: Denies rhinorrhea, congestion, sore throat, or otalgia. CARDIOVASCULAR: Denies chest pain, palpitations, or edema. RESPIRATORY: Denies cough or dyspnea. GASTROINTESTINAL: Denies abdominal pain, nausea, vomiting, or diarrhea. GENITOURINARY: Denies dysuria or hematuria. SKIN: Denies rash . Reports bee sting with itching, swelling and redness. MUSCULOSKELETAL: Denies back pain, joint pain, or myalgia. NEUROLOGIC: Denies headache, numbness, or weakness. PSYCHIATRIC: Denies anxiety or depression. All other systems reviewed are negative, except as documented in HPI. PMFSH Social History Social History Smoking status: Never smoker Alcohol intake: never Substance use: never Substance use type: does not use Do You Feel Safe in your Home?: Yes Lack of Transportation: No Lack of Food: Never True Current Housing: I Have Housing Concerned About Future Housing: No Difficulty Paying Gas/Electric Bills: No Difficulty Paying for Meds: No Currently Unemployed: No Education: Bachelor's Degree Difficulty w/ Childcare or Family Care: No Comments At time of signature, agree with nursing past medical, surgical, social and family history. There is no relevant family history pertinent to the presenting complaint. Exam Narrative: GENERAL: This is a well-nourished, well-developed patient, in no apparent distress. HEAD: normocephalic, atraumatic. EYES: PERRL. Sclera clear/white. Vision is grossly intact. EARS: External ears normal NOSE: External nose normal NECK: Neck supple, non-tender without lymphadenopathy, masses or thyromegaly. CARDIOVASCULAR: Regular rate and rhythm without murmurs, gallops, or rubs. RESPIRATORY: Clear to auscultation. Breath sounds equal bilaterally. No wheezes, rales, or rhonchi. SKIN: warm, Dry, intact with no suspicious lesions or rash, good texture and turgor. erythema, swelling to dorsal aspect right hand with mild warmth on palpation. NEURO: awake, alert, and oriented to person, place and time. There were no obvious focal neurologic abnormalities. EXTREMITIES: No joint tenderness, effusion Course Course Level of Care: Express Care Visit Vital Signs Vital signs: Vital Signs Temperature 36.4 C L 10/03/24 10:47 Pulse Rate 64 10/03/24 10:47 Respiratory Rate 17 10/03/24 10:47 Blood Pressure 108/49 L 10/03/24 10:47 Pulse Oximetry 97 10/03/24 10:47 Oxygen Delivery Room Air 10/03/24 10:47 Temperature 36.4 C L 10/03/24 10:47 Pulse Rate 64 10/03/24 10:47 Respiratory Rate 17 10/03/24 10:47 Blood Pressure 108/49 L 10/03/24 10:47 Pulse Oximetry 97 10/03/24 10:47 Oxygen Delivery Room Air 10/03/24 10:47 Reviewed MDM - Skin/Abscess/Foreign Bdy MDM Narrative Medical decision making narrative: will treat patient for local reaction with Medrol Dosepak, triamcinolone. Recommend she continue Tigist. patient is non-toxic appearing and is in no distress. Patient is appropriate for outpatient treatment and follow-up. Differential Diagnosis Differential diagnosis: Likely cellulitis, insect bites and contact dermatitis Discharge Plan Discharge Clinical Impression: Bee sting Qualifiers: Encounter type: initial encounter Injury intent: accidental or unintentional Qualified Code(s): T63.441A - Toxic effect of venom of bees, accidental (unintentional), initial encounter Patient Disposition: Home Condition: Stable Instructions: Insect Bite or Sting (ED) Additional Instructions: Continue taking Tigist daily. Take steroids as prescribed. Apply steroid cream sparingly to affected area 2 to 3 times a day. Take Tylenol every 6-8 hours as needed for pain. Elevate when at rest. See your doctor as needed. Patient Language: Swedish Prescriptions: New methylprednisolone [Medrol (Rusty)] 4 mg tablets,dose pack See Rx Instructions PO .COMPLEX Qty: 21 0RF Rx Instructions: orally per package directions triamcinolone acetonide 0.1 % cream 1 applic topical BID PRN (Reason: insect bite) Qty: 30 0RF No Action triamterene-hydrochlorothiazid 37.5-25 mg capsule estradiol 0.0375 mg/24 hr patch semiweekly atorvastatin 40 mg tablet PO doxycycline hyclate 100 mg tablet PO ciclopirox 8 % solution topical fluticasone propionate [Flonase Allergy Relief] 50 mcg/actuation spray,suspension 2 spray intranasal DAILY Rx Instructions: administer into each nostril nebivolol [Bystolic] 10 mg tablet 10 mg PO DAILY aspirin [Enteric Coated Aspirin] 81 mg tablet,delayed release (DR/EC) 81 mg PO DAILY Follow-up/Referrals: Brooklynn,Ten King MD [Primary Care Provider] - Time of Disposition: 10:54
== END 2024-10-03 10:55 | disposition home or self-care (01) ==
PROVIDERS: Emergency Provider Nurse Practitioner Family; PCP Internal Medicine
DX: T63.441A Toxic effect of venom of bees, accidental (unintentional), initial encounter (principal); I10 Essential (primary) hypertension; E78.00 Pure hypercholesterolemia, unspecified; M19.90 Unspecified osteoarthritis, unspecified site; Z86.16 Personal history of COVID-19
CPT/HCPCS: 99213; G0463